=== PATIENT | female | born 1990 | race Caucasian/White ===

== ENCOUNTER 2016-04-23 15:52 | Inpatient (IN) | payer MEDICAID ==
[~2016-04-23] VITALS: Ht 162.6 cm; Wt 97.7 kg
[~2016-04-23 15:52] MED LIST: MOTRIN 800800 MG/TAB PO; PERCOCET 325 MG1 TA2 PO; PRENATAL1 TA2 PO; VALTREX1 GM PO
[2016-05-16] VITALS (18 sets, daily range): BP systolic 100–122; BP diastolic 42–73; PULSE 57–84; TEMP 97.6–98.8
[2016-05-16 10:31] LABS: BASO % 0.4 % (0.0-2.0); EOS # 0.4 (0.0-0.7); EOS % 3.8 % (0-4.0); GRAN # 6.1 (1.4-6.5); GRAN % 64.9 % (42.2-75.2); HEMOGLOBIN 12.5 g/dl (12.5-16.0); LYMPH # 2.3 (1.2-3.4); MEAN CELL VOLUME 88 fl (80.0-100.0); MEAN CORPUSCULAR HEMOGLOBIN 30 pg (27.0-31.0); MEAN CORPUSCULAR HGB CONC 34 g/dl (33.0-37.0); MEAN PLATELET VOLUME 10.4 fl (7.4-10.4); MONO # 0.5 (0.1-0.6); MONO % 5.3 % (1.7-9.3); PLATELET COUNT 237 K/mm3 (130-400); RED BLOOD COUNT 4.23 M/mm3 (4.10-5.30); WHITE BLOOD COUNT 9.3 K/mm3 (4.8-10.8)
[2016-05-16] MEDS ORDERED: VALTREX 50500 MG/TAB PO (10:33)
[2016-05-17 02:00] VITALS: BP 123/54; PULSE 65; TEMP 98.2
[2016-05-17 08:00] VITALS: BP 118/58; PULSE 72; TEMP 98.3
[2016-05-17 13:15] VITALS: BP 128/63; PULSE 66; TEMP 98.1
[2016-05-17 16:30] VITALS: BP 127/62; PULSE 74; TEMP 98.2
[2016-05-17 19:55] VITALS: BP 118/62; PULSE 67; TEMP 98.7
[2016-05-18 09:47] VITALS: BP 123/71; PULSE 78; TEMP 98.8
[2016-05-18] MEDS ORDERED: IBU800 M1 PO (12:09)
[2016-05-18] MEDS ORDERED: PERCOCET 325 MG1 TA2 PO (12:10)
== END 2016-05-18 13:15 | disposition home or self-care (01) | DRG 766 ==
LOC: OB 05-16 07:02 → EDSTATUS 05-21 07:01 → LDRO 05-21 15:52
PROVIDERS: Obstetrics & Gynecology
PROC: 10D00Z1 Extraction of Products of Conception, Low, Open Approach (ICD-10-PCS; principal; 2016-05-16)
DX: O34.211 Maternal care for low transverse scar from previous cesarean delivery (principal); N85.8 Other specified noninflammatory disorders of uterus; O32.1XX0 Maternal care for breech presentation, not applicable or unspecified; Z3A.39 39 weeks gestation of pregnancy; Z37.0 Single live birth
CPT/HCPCS: J0690; J1885; J2270; J2370; J2405; J2590; J7120

== ENCOUNTER → 2018-02-25 | Outpatient (CLI) | payer BC ==
[~2018-02-25] MED LIST changes: +IBU800 M1 PO; +VALTREX 50500 MG/TAB PO
== END ==
LOC: MC.RAD 07:30
DX: N63.42 Unspecified lump in left breast, subareolar (principal)

== ENCOUNTER 2018-10-15 13:43 | Emergency (ER) | payer MEDICAID ==
[~2018-10-15] VITALS: Ht 162.6 cm; Wt 81.7 kg
[2018-10-15 14:13] VITALS: BP 125/74; PULSE 80
[2018-10-15] MEDS ORDERED: CEPHALEXIN500 M1 PO (14:42)
[2018-10-15 15:05] VITALS: TEMP 98.9
== END 2018-10-15 15:10 | disposition home or self-care (01) ==
LOC: COL.ER 13:43
DX: T63.301A Toxic effect of unspecified spider venom, accidental (unintentional), initial encounter (principal)

== ENCOUNTER 2020-10-10 20:57 | Emergency (ER) | payer MEDICAID ==
[~2020-10-10] VITALS: Ht 162.6 cm; Wt 86.4 kg
[~2020-10-10 20:57] MED LIST changes: +CEPHALEXIN500 M1 PO
[2020-10-10 21:54] LABS: BASO # 0.1 (0.0-0.2); BASO % 0.8 % (0.0-2.0); EOS # 0.9 (0.0-0.7); EOS % 9.3 % (0-4.0); GRAN # 4.5 (1.4-6.5); GRAN % 48.2 % (42.2-75.2); HEMATOCRIT 41.7 % (37.0-47.0); LYMPH # 3.5 (1.2-3.4); LYMPH % 37.6 % (20.0-51.0); MEAN CELL VOLUME 91 fl (80.0-100.0); MEAN CORPUSCULAR HEMOGLOBIN 31 pg (27.0-31.0); MEAN CORPUSCULAR HGB CONC 34 g/dl (33.0-37.0); MEAN PLATELET VOLUME 9.3 fl (7.4-10.4); MONO # 0.4 (0.1-0.6); PLATELET COUNT 360 K/mm3 (130-400); RED BLOOD COUNT 4.59 M/mm3 (4.10-5.30); REDCELL DISTRIBUTION WIDTH-CV 12.5 % (11.5-14.5)
[2020-10-10 22:23] LABS: ALANINE AMINOTRANSFERASE 13 U/L (4-34); ALBUMIN 4.4 gm/dL (3.5-5.0); ALKALINE PHOSPHATASE 74 U/L (50-136); ANION GAP 7 mmol/L (7-16); AST,SGOT 57 U/L (15-37); BILIRUBIN,TOTAL 0.3 mg/dL (0.0-1.0); BLOOD UREA NITROGEN 11 mg/dL (7-17); CALCIUM 9.4 mg/dL (8.4-10.2); CARBON DIOXIDE 25 mmol/L (22-30); CHLORIDE 107 mmol/L (98-107); CREATININE, serum 0.78 (0.52-1.25); GLUCOSE 91 mg/dL (74-106); POTASSIUM 3.9 mmol/L (3.4-5.0); SODIUM 139 mmol/L (137-145); TOTAL PROTEIN 7.9 gm/dL (6.4-8.2)
[2020-10-10 22:36] LABS: TROPONIN-I < 0.012 ng/mL (0.000-0.035)
[2020-10-10 23:24] VITALS: BP 126/88; PULSE 70; TEMP 98.6
== END 2020-10-10 23:23 | disposition home or self-care (01) ==
LOC: COL.ER 20:57
PROVIDERS: Physician Assistant
DX: R07.89 Other chest pain (principal); F17.210 Nicotine dependence, cigarettes, uncomplicated; Z20.822 Contact with and (suspected) exposure to COVID-19
CPT/HCPCS: J7030